=== PATIENT | female | born 2000 | race African-American/Black ===

== ENCOUNTER 2023-06-21 19:35 | Emergency (ER) | payer SELFPAY ==
[~2023-06-21] VITALS: Ht 160 cm; Wt 63.5 kg
[2023-06-21 19:42] VITALS: O2SAT 100
[2023-06-21 19:49] VITALS: BP 104/61; PULSE 84; RESP 12; TEMP 97.6
== END 2023-06-21 21:40 | disposition home or self-care (01) ==
LOC: ER 19:35
DX: R07.89 Other chest pain (principal); V49.49XA Driver injured in collision with other motor vehicles in traffic accident, initial encounter; Y93.89 Activity, other specified; Y92.89 Other specified places as the place of occurrence of the external cause; Y99.8 Other external cause status
CPT/HCPCS: 81025; 99282